=== PATIENT | female | born 1990 | race Caucasian/White ===

== ENCOUNTER 2022-10-18 01:45 | Emergency (ER) | payer OTHER, SELFPAY ==
--- NOTE | ~2022-10-18 | US_ITS ---
EXAMINATION: US VENOUS ULTRASOUND WITH DOPPLER LOWER EXTREMITY, RIGHT CLINICAL INFORMATION: Right leg pain COMPARISON: None available. TECHNIQUE: Ultrasound of the deep veins is performed from the hip to the calf with compression sonography and color and pulse Doppler assessment. Spectral analysis with color-flow imaging is performed. FINDINGS: There is normal venous compression and respiratory variation and augmented flow. The visualized common femoral vein, superficial femoral vein, profunda femoral vein, popliteal vein, and the trifurcation region shows no evidence of deep venous thrombosis. There is no significant popliteal fossa cyst. If the patient's symptoms persist, followup ultrasound in 5 days 7 days might be of value to exclude proximal propagation from a non-visualized calf vein. US/US venous duplex LE RT IMPRESSION: No DVT demonstrated in the right lower extremity.
[2022-10-18 01:47] VITALS: PULSE 86; TEMP 36.4; O2SAT 97; BMI 33.3
--- NOTE | 2022-10-18 04:00 | PC.NURSE ---
In order to obtain labwork, pt requested use of port rather than peripheral draw. Initial attempt by this RN successful with good flush, however no blood return. poultry dressing worker made multiple other attempts with similar results. Second PANTOMIMIST also with single attempt, same results. Per MD Allen, will positive flush results, port may be used for access to administer ordered fluids and medications. Pt agreed with plan of care.
[2022-10-18] MEDS: Heparin Sodium,Porcine Flush 50 UNITS/5 ML SYRINGE IVFLUSH (04:02)
[2022-10-18] MEDS: 0.9 % Sodium Chloride 500 ML 999 ML IV (04:02)
[2022-10-18] MEDS: Ketorolac Tromethamine 15 MG/ML VIAL IVPUSH (04:02)
--- NOTE | 2022-10-18 04:03 | ED_ITS ---
HPI - Extremity Injury (Lower) General Chief Complaint: Extremity Injury, Lower Stated Complaint: Leg Pain Time Seen by Provider: 10/18/22 02:08 History of Present Illness HPI Narrative: Patient is a 32-year-old female presents today with having right thigh pain. The pain has been ongoing for the last few days. There is no bowel urinary incontinence. There is no focal weakness. Patient has a history of rectal cancer. With metastasis to the sacrum. Patient denies any fever chills. Currently is on chemotherapy. She is from home. Patient denies any leg swelling. No history of blood clots in the past. Related Data Previous Rx's Medication Instructions Recorded cyclobenzaprine 10 mg tablet 10 mg PO TID PRN pain #14 tabs 10/18/22 ibuprofen 400 mg tablet 400 mg PO Q6H PRN pain #20 tabs 10/18/22 oxycodone 5 mg tablet 5 mg PO Q8H PRN pain #15 tabs 10/18/22 Allergies Allergy/AdvReac Type Severity Reaction Status Date / Time acetaminophen [From Percocet] AdvReac Vomiting Verified 10/18/22 01:53 oxycodone [From Percocet] AdvReac Vomiting Verified 10/18/22 01:53 Review of Systems Review of Systems: Positive rectal cancer Positive pain to the right thigh PMFSH Past Medical History Attestation statement: The following information was validated with the patient. Social History Social History Alcohol intake: current Alcohol intake frequency: a few times a week Smoked in Last 30 Days: No Use of substances other than those prescribed or required for medical reasons: No Advance Directives: No Advance Directives Information Provided: No Patient : No Physical Exam Vital Signs: Vital Signs: Last Vital Signs Temp 97.8 F 10/18/22 04:45 Pulse 75 10/18/22 04:45 Resp 18 10/18/22 04:45 BP 127/74 10/18/22 04:45 Pulse Ox 99 10/18/22 04:45 O2 Del Method Room Air 10/18/22 04:45 BMI result Body Mass Index 33.3 Appearance: Alert. Oriented X3. No acute distress. Eyes: Pupils equal, round and reactive to light. ENT: Pharynx normal. Neck: Normal inspection. Neck supple. No lymph nodes noted. No crepitus CVS: Normal heart rate and rhythm. Pulses normal. Normal S1 and S2 Respiratory: No respiratory distress. Breath sounds normal. No Wheezing. No rales Abdomen: Soft and nontender. No rigidity. No distention. good BS x4 Skin: Skin warm and dry. Normal skin color. Normal skin turgor. Extremities: No lower extremity edema. Neurovascular intact to all extremities. No Lacerations. No Rash. Bilateral lower extremity is approximately the same size. Sensation in the lower extremity intact there is no calf tenderness elicited on palpation distal pulses intact. Neuro: Oriented X 3. No motor deficit. No sensory deficit. Moving all extermities. No slurred speech Medications Administered Discontinued Medications Generic Name Dose Route Start Last Admin Trade Name Freq PRN Reason Stop Dose Admin Heparin Sodium (Porcine) 50 units 10/18/22 03:38 10/18/22 04:02 Heparin Sodium,Porcine Flush 50 Units/5 Ml Syringe IVFLUSH 10/18/22 03:39 50 units ONCE ONE Administration Hydromorphone HCl 0.5 mg 10/18/22 02:33 10/18/22 04:05 Hydromorphone Hcl 0.5 Mg/0.5 Ml Syringe IVPUSH 10/18/22 02:34 0.5 mg ONCE ONE Administration Protocol Sodium Chloride 500 mls @ 999 mls/hr 10/18/22 02:45 10/18/22 04:50 Ns IV 10/18/22 03:15 Infused .Q31M TITA Infusion Ketorolac Tromethamine 15 mg 10/18/22 02:33 10/18/22 04:02 Ketorolac Tromethamine 15 Mg/Ml Vial IVPUSH 10/18/22 02:34 15 mg ONCE ONE Administration Lorazepam 0.5 mg 10/18/22 02:33 10/18/22 04:04 Lorazepam 2 Mg/Ml Vial IVPUSH 10/18/22 02:34 0.5 mg ONCE ONE Administration Medical Decision Making Medical Decision Making MDM Narrative: Patient complaining of pain to the thigh area. With a history of rectal cancer. Will give pain medication. Doppler of the lower extremity showed no evidence of DVT. Labs are pending the check kidney function. Patient did not have any bowel urinary incontinence suggest patient has core equinus syndrome. No focal weakness. When pain is controlled will discharge patient home Patient's electrolytes unremarkable. Doppler of the lower extremity showed no evidence of DVT. Pain is now controlled. Will discharge patient home. Differential Diagnosis DVT, sciatica, musculoskeletal pain Lab Data MDM Lab Attestation statement: I reviewed the patient's lab results. 10/18/22 04:44 10/18/22 04:44 Labs: Lab Results 10/18/22 10/18/22 10/18/22 Range/Units 04:44 04:44 04:44 WBC 7.5 (4.8-10.8) X10*3/uL RBC 3.66 L (4.20-5.50) X10*6/uL Hgb 13.4 (12.0-16.0) g/dl Hct 38.7 (37.0-47.0) % MCV 105.7 H (80.0-98.0) fL MCH 36.6 H (27.0-33.0) pg MCHC 34.6 (31.0-35.0) g/dl RDW 12.4 (11.0-16.0) % Plt Count 194 (160-400) X10*3/uL MPV 10.3 (9.4-12.3) fL Absolute Nucleated RBC 0.000 (0.0-0.012) X10*3/uL Nucleated RBC % (auto) 0.0 (0.0-0.2) /100WBC Sodium 140 (135-145) mmol/L Potassium 3.8 (3.3-5.1) mmol/L Chloride 107 (96-108) mmol/L Carbon Dioxide 24 (22-29) mmol/L Anion Gap 13 (12-20) BUN 16 (9-16) mg/dL Creatinine 0.87 (0.5-1.4) mg/dL Estim Creat Clear Calc 113.3 Estimated GFR > 60 Random Glucose 97 (60-115) mg/dL Calcium 8.7 (8.4-10.2) mg/dL Total Bilirubin 0.4 (0.0-1.0) mg/dL AST 16 (5-31) U/L ALT 15 (0-31) U/L Alkaline Phosphatase 84 (39-117) U/L Total Protein 6.1 L (6.5-8.0) g/dL Albumin 3.7 (3.5-5.0) g/dL Beta HCG, Quant < 2 mIU/mL Urine Color Urine Appearance Urine pH (5.0-9.0) Ur Specific Randolph (1.005-1.025) Urine Protein (Neg-Trace) mg/dL Urine Glucose (UA) (Negative) mg/dL Urine Ketones (Negative) mg/dL Urine Blood (Negative) Urine Nitrite (Negative) Ur Leukocyte Esterase (Negative) Urine RBC (0-2) /HPF Urine WBC (0-5) /HPF Ur Squamous Epith Cells (0-2) /HPF Urine Bacteria (None Seen) Hyaline Casts (0-2) /LPF 10/18/22 Range/Units 04:51 WBC (4.8-10.8) X10*3/uL RBC (4.20-5.50) X10*6/uL Hgb (12.0-16.0) g/dl Hct (37.0-47.0) % MCV (80.0-98.0) fL MCH (27.0-33.0) pg MCHC (31.0-35.0) g/dl RDW (11.0-16.0) % Plt Count (160-400) X10*3/uL MPV (9.4-12.3) fL Absolute Nucleated RBC (0.0-0.012) X10*3/uL Nucleated RBC % (auto) (0.0-0.2) /100WBC Sodium (135-145) mmol/L Potassium (3.3-5.1) mmol/L Chloride (96-108) mmol/L Carbon Dioxide (22-29) mmol/L Anion Gap (12-20) BUN (9-16) mg/dL Creatinine (0.5-1.4) mg/dL Estim Creat Clear Calc Estimated GFR Random Glucose (60-115) mg/dL Calcium (8.4-10.2) mg/dL Total Bilirubin (0.0-1.0) mg/dL AST (5-31) U/L ALT (0-31) U/L Alkaline Phosphatase (39-117) U/L Total Protein (6.5-8.0) g/dL Albumin (3.5-5.0) g/dL Beta HCG, Quant mIU/mL Urine Color Yellow Urine Appearance Clear Urine pH 5.5 (5.0-9.0) Ur Specific Randolph 1.020 (1.005-1.025) Urine Protein Negative (Neg-Trace) mg/dL Urine Glucose (UA) Negative (Negative) mg/dL Urine Ketones Negative (Negative) mg/dL Urine Blood Trace H (Negative) Urine Nitrite Negative (Negative) Ur Leukocyte Esterase Negative (Negative) Urine RBC 3-5 H (0-2) /HPF Urine WBC 0-5 (0-5) /HPF Ur Squamous Epith Cells 3-5 (0-2) /HPF Urine Bacteria None Seen (None Seen) Hyaline Casts 0-2 (0-2) /LPF Prescription Management I considered prescription management with: Pain Medication Chronic Conditions Rectal CA Discharge Plan Discharge Clinical Impression: Sciatica Patient Disposition: Home, Self-Care Instructions: Sciatica (ED) Prescriptions: New cyclobenzaprine 10 mg tablet 10 mg PO TID PRN (Reason: pain) Qty: 14 0RF ibuprofen 400 mg tablet 400 mg PO Q6H PRN (Reason: pain) Qty: 20 0RF oxycodone 5 mg tablet 5 mg PO Q8H PRN (Reason: pain) Qty: 15 0RF Rx Instructions: Partial Fill upon patient request. Referrals: Physician,Unknown J [Primary Care Provider] - 10/23/22
[2022-10-18] MEDS: LORazepam 2 MG/ML VIAL 0.5 MG IVPUSH (04:04)
[2022-10-18] MEDS: HYDROmorphone HCl 0.5 MG/0.5 ML SYRINGE IVPUSH ×2 (04:05→05:55)
[2022-10-18 04:45] VITALS: BP 127/74; PULSE 75; RESP 18; TEMP 36.6; O2SAT 99
--- NOTE | 2022-10-18 04:47 | MHC.EDTECH ---
This tech assumed care of patient, Labs were drawn, Vitals taken, patient walked to bathroom obtained a urine specimen. Patient is resting at this time. Call hunter within reach
[2022-10-18 04:53] LABS: Hematocrit 38.7 % (37.0-47.0); Hemoglobin 13.4 g/dl (12.0-16.0); Mean Corpuscular HGB Conc 34.6 g/dl (31.0-35.0); Mean Corpuscular Hemoglobin 36.6 pg (27.0-33.0); Mean Corpuscular Volume 105.7 fL (80.0-98.0); Mean Platelet Volume 10.3 fL (9.4-12.3); Platelet Count 194 X10*3/uL (160-400); Red Blood Count 3.66 X10*6/uL (4.20-5.50); Red Cell Distribution Width 12.4 % (11.0-16.0); White Blood Count 7.5 X10*3/uL (4.8-10.8)
--- NOTE | 2022-10-18 04:55 | PC.NURSE ---
Pt ambulating to bathroom with steady gait, Endorsing reduction in pain per charting. WCTM
[2022-10-18 04:58] LABS: Appearance Urine Clear; Color Urine Yellow; Glucose Urine UA Negative (Negative); Leukocyte Esterase Urine Negative (Negative); Nitrite Urine Negative (Negative); PH 5.5 (5.0-9.0); UMIC TRIGGER UACC YES; Urine Blood Trace (Negative); Urine Ketones Negative (Negative); Urine Protein Negative (Neg-Trace)
[2022-10-18 05:00] LABS: Bacteria Urine None Seen (None Seen); Hyaline Casts Urine 0-2 /LPF (0-2); WBC Urine 0-5 /HPF (0-5)
[2022-10-18 05:10] LABS: Alanine Aminotransferase 15 U/L (0-31); Albumin Level 3.7 g/dL (3.5-5.0); Alkaline Phosphatase 84 U/L (39-117); Anion Gap 13 (12-20); Aspartate Amino Transferase 16 U/L (5-31); Bilirubin Total 0.4 mg/dL (0.0-1.0); Blood Urea Nitrogen 16 mg/dL (9-16); Calcium 8.7 mg/dL (8.4-10.2); Carbon Dioxide 24 mmol/L (22-29); Chloride 107 mmol/L (96-108); Creatinine Clr Calc Pharmacy 113.3; Estimated Glomerular Filt Rate > 60; Glucose Random 97 mg/dL (60-115); Potassium 3.8 mmol/L (3.3-5.1); Sodium 140 mmol/L (135-145); Total Protein 6.1 g/dL (6.5-8.0)
[2022-10-18 05:17] LABS: HCG Quantitative < 2 mIU/mL
[2022-10-18] MEDS: Heparin Sodium,Porcine Flush 50 UNITS, 0.9 % Sodium Chloride Flush 5 ML IVFLUSH (06:33)
== END 2022-10-18 06:37 | disposition home or self-care (01) ==
PROVIDERS: Emergency Provider Emergency Medicine Emergency Medical Services
DX: M54.31 Sciatica, right side (principal); M79.604 Pain in right leg; C20 Malignant neoplasm of rectum; C79.51 Secondary malignant neoplasm of bone; Z92.21 Personal history of antineoplastic chemotherapy
CPT/HCPCS: 36415; 80053; 81001; 84702; 85027; 93971; 96361; 96374; 96375; 96376; 99284; J1170; J1642; J1885; J2060

== ENCOUNTER → 2022-11-22 15:21 | Outpatient (BNVA) | payer OTHER, SELFPAY | DX: Z13.89 Encounter for screening for other disorder (principal) | CPT/HCPCS: 99203 ==

== ENCOUNTER 2023-01-18 04:00 | Emergency (ER) | payer OTHER, SELFPAY ==
--- NOTE | ~2023-01-18 | US_ITS ---
EXAMINATION: US VENOUS ULTRASOUND WITH DOPPLER LOWER EXTREMITY, RIGHT CLINICAL INFORMATION: Pain. History of cancer COMPARISON: None available. TECHNIQUE: Ultrasound of the deep veins is performed from the hip to the calf with compression sonography and color and pulse Doppler assessment. Spectral analysis with color-flow imaging is performed. FINDINGS: There is normal venous compression and respiratory variation and augmented flow. The visualized common femoral vein, superficial femoral vein, profunda femoral vein, popliteal vein, and the trifurcation region shows no evidence of deep venous thrombosis. There is no significant popliteal fossa cyst. If the patient's symptoms persist, followup ultrasound in 5 days 7 days might be of value to exclude proximal propagation from a non-visualized calf vein. US/US venous duplex LE RT IMPRESSION: No DVT demonstrated in the right lower extremity.
--- NOTE | 2023-01-18 06:43 | ED.EXTPRO ---
HPI - Extremity Problem General Chief complaint: Extremity Problem Stated complaint: right leg pain Time Seen by Provider: 01/18/23 06:38 Source: patient and old records reviewed Mode of arrival: ambulatory Limitations: no limitations History of Present Illness HPI Narrative: 32 y/o female with history of metastatic rectal cancer w/ sacral mass on lifelong oral chemotherapy who presents to the ER for evaluation of acute on chronic right lower extremity pain. She states she usually has a mild ache in her posterior thigh that she thinks is due to nerve compression from a tumor in her sacrum. It occasionally shoots up to the right thigh and buttock. It is usually relieved with ibuprofen. She states last night the pain was severe, stabbing pain not relieved by ibuprofen and a muscle relaxer. It radiated down into the calf. She was unable to sleep so she came to the ER for evaluation She recently had scans done at [facility] where she gets her cancer treatments. It showed the sacral mass slightly larger and brighter per patient report. MD Complaint: extremity pain Onset (ago): hour(s) Pain Consistency: constant Location: right Quality: stabbing Radiation: proximal Relieving factors: nothing Exacerbating factors: palpation Associated symptoms: denies other symptoms Context: other (hx metastatic cancer) Related Data Previous Rx's Medication Instructions Recorded cyclobenzaprine 10 mg tablet 10 mg PO TID PRN pain #14 tabs 10/18/22 ibuprofen 400 mg tablet 400 mg PO Q6H PRN pain #20 tabs 10/18/22 oxycodone 5 mg tablet 5 mg PO Q8H PRN pain #15 tabs 10/18/22 polymyxin B sulfate 10,000 1 drp ophthalmic (eye) QID 7 days 11/22/22 unit-trimethoprim 1 mg/mL eye #10 mL drops (Polytrim) cyclobenzaprine 10 mg tablet 10 mg PO TID PRN muscle spasm #10 01/18/23 tabs gabapentin 100 mg capsule 100 mg PO BID #30 caps 01/18/23 hydromorphone 2 mg tablet 2 mg PO Q6H PRN severe pain (scale 01/18/23 (Dilaudid) score 7-10) #7 tabs Allergies Allergy/AdvReac Type Severity Reaction Status Date / Time acetaminophen [From Percocet] AdvReac Vomiting Verified 10/18/22 01:53 oxycodone [From Percocet] AdvReac Vomiting Verified 10/18/22 01:53 Review of Systems Review of Systems: Yes all other systems are reviewed and are negative [facility] Social History Social History Alcohol intake: current Alcohol intake frequency: does not drink Smoked in Last 30 Days: No Substance Use Type: Marijuana Advance Directives: No Advance Directives Information Provided: Yes Physical Exam Vital Signs: Vital Signs: Last Vital Signs Temp 97.7 F 01/18/23 06:50 Pulse 77 01/18/23 06:48 Resp 12 01/18/23 06:50 BP 118/68 01/18/23 06:48 Pulse Ox 97 01/18/23 06:50 O2 Del Method Room Air 01/18/23 06:50 BMI result Body Mass Index 33.4 Appearance: Alert. Oriented X3. No acute distress. Head: normocephalic, atraumatic. Eyes: Pupils equal, round and reactive to light. ENT: Pharynx normal. No tonsillar swelling or exudate. Neck: Normal inspection. Neck supple. CVS: Normal heart rate and rhythm. Pulses normal. Respiratory: No respiratory distress. Breath sounds normal. Abdomen: Soft and nontender. +BS x4 Skin: Skin warm and dry. Normal skin color. Normal skin turgor. No rashes. Extremities: No lower extremity edema. No joint swelling. Right posterior thigh tenderness. no erythema or warmth. no calf tenderness. RLE held in flex position Neuro/psych: Oriented X 3. No motor deficit. No sensory deficit. CN II-XII intact. Normal speech and cognition. Medications Administered Discontinued Medications Generic Name Dose Route Start Last Admin Trade Name Freq PRN Reason Stop Dose Admin Hydromorphone HCl 2 mg 01/18/23 06:41 01/18/23 07:57 Hydromorphone Hcl 2 Mg Tablet PO 01/18/23 06:42 2 mg ONCE ONE Administration Medical Decision Making Medical Decision Making MDM Narrative: 32 yo female with history of metastatic rectal cancer w/ sacral mass presents to the ER for evaluation of RLE pain - acute on chronic, now stabbing and radiating both proximally and distally. Need to r/o DVT given cancer history. Patient's lower extremity Doppler was negative for DVT. Some mild relief with oral Dilaudid. Pain is most likely due to sacral mass, possibly compressing a nerve as it radiating down her leg. Patient would like to start gabapentin low dose and see if this improves her pain. She has an appointment with her oncologist in 1 week. Comfortable discharge home with low-dose gabapentin trial, pain control and outpatient follow-up. She agrees with plan. Stable for discharge home. Differential Diagnosis Differential Diagnoses: The differential diagnosis associated with the presentation includes Acute DVT, neuropathic pain, nerve compression, sciatica, lumbar radiculopathy, muscle strain Independent Interpretation I performed an independent interpretation of an: Ultrasound Interpretation: no acute DVT seen Radiology Impression Discussion of test interpretation with radiology: I have reviewed the radiologist's reading. Radiologist Impression: CLINICAL INFORMATION: Pain. History of cancer COMPARISON: None available. TECHNIQUE: Ultrasound of the deep veins is performed from the hip to the calf with compression sonography and color and pulse Doppler assessment. Spectral analysis with color-flow imaging is performed. FINDINGS: There is normal venous compression and respiratory variation and augmented flow. The visualized common femoral vein, superficial femoral vein, profunda femoral vein, popliteal vein, and the trifurcation region shows no evidence of deep venous thrombosis. There is no significant popliteal fossa cyst. If the patient's symptoms persist, followup ultrasound in 5 days 7 days might be of value to exclude proximal propagation from a non-visualized calf vein. US/US venous duplex LE RT IMPRESSION: No DVT demonstrated in the right lower extremity. External Record Review External record reviewed: Outpatient record, Prior outpatient labs and Prior outpatient radiology Prescription Management I considered prescription management with: Pain Medication Chronic Conditions Patient?s care impacted by: Other (Metastatic rectal cancer) Critical Care Time Critical Care Time Critical Care Time: No Discharge Plan Discharge Clinical Impression: Pain in right leg Patient Disposition: Home, Self-Care Instructions: Leg Pain (ED) Additional Instructions: Your ultrasound was negative for blood clot. Follow-up with your oncologist next week as scheduled. Take the prescribed medications as directed. Continue anti-inflammatories as needed for pain. Rest If you develop new or worsening symptoms call 911 or come back to the ER for further evaluation. Prescriptions: New gabapentin 100 mg capsule 100 mg PO BID Qty: 30 0RF hydromorphone [Dilaudid] 2 mg tablet 2 mg PO Q6H PRN (Reason: severe pain (scale score 7-10)) Qty: 7 0RF Rx Instructions: Partial Fill upon patient request. cyclobenzaprine 10 mg tablet 10 mg PO TID PRN (Reason: muscle spasm) Qty: 10 0RF No Action polymyxin B sulf-trimethoprim [Polytrim] 10,000 unit- 1 mg/mL drops 1 drp ophthalmic (eye) QID 7 Days Qty: 10 0RF Rx Instructions: while awake; do not exceed 6 doses in 24 hours cyclobenzaprine 10 mg tablet 10 mg PO TID PRN (Reason: pain) Qty: 14 0RF ibuprofen 400 mg tablet 400 mg PO Q6H PRN (Reason: pain) Qty: 20 0RF oxycodone 5 mg tablet 5 mg PO Q8H PRN (Reason: pain) Qty: 15 0RF Rx Instructions: Partial Fill upon patient request. Stand Alone Forms: Work/School Release
[2023-01-18 06:48] VITALS: BP 118/68; PULSE 77; RESP 16; O2SAT 99
[2023-01-18 06:50] VITALS: RESP 12; TEMP 36.5; O2SAT 97; BMI 33.4
--- NOTE | 2023-01-18 06:54 | PC.NURSE ---
Pt ca&ox4, ambulates with a steady gait. No signs of distress. Pt reports 8/10 right stabbing leg pain. Pt vitals stable. Plan of care ongoing.
[2023-01-18] MEDS: HYDROmorphone HCl 2 MG TABLET PO ×2 (07:57→09:50)
[2023-01-18 08:00] VITALS: RESP 16
== END 2023-01-18 09:56 | disposition home or self-care (01) ==
PROVIDERS: Emergency Provider Emergency Medicine
DX: M79.604 Pain in right leg (principal); R60.0 Localized edema
CPT/HCPCS: 93971; 99284

== ENCOUNTER 2023-04-03 21:57 | Emergency (ER) | payer OTHER, SELFPAY ==
--- NOTE | ~2023-04-03 | CT_ITS ---
EXAMINATION: CT HEAD WITHOUT CONTRAST CLINICAL INFORMATION: Dizziness COMPARISON: None available. TECHNIQUE: Contiguous axial imaging was performed from the skull base to vertex without intravenous administration of contrast. This CT examination was performed using dose optimization techniques as appropriate, variously including the following: *Automated exposure control *Adjustment of mA and/or kV according to patient size (this includes techniques or standardized protocols for targeted exams where dose is matched to indication/reason for exam; i.e. extremities or head) *Use of iterative reconstruction technique DLP: 644 mGy-cm FINDINGS: There is no evidence of acute intracranial hemorrhage or territorial infarction. No abnormal mass-effect or midline shift is seen. [place] to white matter differentiation is well preserved. No extra-axial fluid collections are identified. The ventricles are normal in size. Small hypoattenuating focus in the right basal ganglia is suggestive of a prominent perivascular space. The osseous structures and soft tissues are normal. The mastoid air cells and visualized portions of the paranasal sinuses are well-aerated. CT/CT head/brain wo IV con IMPRESSION: No acute intracranial pathology.
--- NOTE | 2023-04-03 22:09 | ECG_ITS ---
Test Reason : WEAKNESS Blood Pressure : / mmHG Vent. Rate : 096 BPM Atrial Rate : 096 BPM P-R Int : 136 ms QRS Dur : 076 ms QT Int : 364 ms P-R-T Axes : 033 067 040 degrees QTc Int : 459 ms Normal sinus rhythm Normal ECG No previous ECGs available Referred By: Generic ED Physician Electronically Signed By:IZA MCKINLEY MD
[2023-04-03 22:15] VITALS: BP 114/62; PULSE 90; RESP 18; TEMP 36.5; O2SAT 100; BMI 32.4
[2023-04-03 22:33] LABS: Appearance Urine Clear; Color Urine Yellow; Glucose Urine UA Negative (Negative); Leukocyte Esterase Urine Negative (Negative); Nitrite Urine Negative (Negative); Specific Gravity - Urine 1.025 (1.005-1.025); UPreg QC Valid YES; Urine Blood Negative (Negative); Urine Ketones Negative (Negative); Urine Pregnancy NEGATIVE (NEGATIVE); Urine Protein Negative (Neg-Trace)
[2023-04-03 22:45] VITALS: BP 114/59; PULSE 98
[2023-04-03 22:46] VITALS: BP 110/71; BP 115/71; PULSE 100; PULSE 96
--- NOTE | 2023-04-03 23:20 | ED.GENADULT ---
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 Right now she tells me she is no longer having issues with depth perception however she just feels overall unwell. She denies chest pain, shortness of breath, nausea, vomiting, abdominal pain, visual disturbances, weakness, changes in speech. Patient does report that prior to this episode her smart watch told her that she was tachycardic in the 120s. NIH stroke scale 0 Related Data Previous Rx's Medication Instructions Recorded cyclobenzaprine 10 mg tablet 10 mg PO TID PRN pain #14 tabs 10/18/22 ibuprofen 400 mg tablet 400 mg PO Q6H PRN pain #20 tabs 10/18/22 oxycodone 5 mg tablet 5 mg PO Q8H PRN pain #15 tabs 10/18/22 polymyxin B sulfate 10,000 1 drp ophthalmic (eye) QID 7 days 11/22/22 unit-trimethoprim 1 mg/mL eye #10 mL drops (Polytrim) cyclobenzaprine 10 mg tablet 10 mg PO TID PRN muscle spasm #10 01/18/23 tabs gabapentin 100 mg capsule 100 mg PO BID #30 caps 01/18/23 hydromorphone 2 mg tablet 2 mg PO Q6H PRN severe pain (scale 01/18/23 (Dilaudid) score 7-10) #7 tabs Allergies Allergy/AdvReac Type Severity Reaction Status Date / Time acetaminophen [From Percocet] AdvReac Vomiting Verified 10/18/22 01:53 oxycodone [From Percocet] AdvReac Vomiting Verified 10/18/22 01:53 Review of Systems Review of Systems: Constitutional : No Weight loss, No Fever, No Chills, No Fatigue, No Malaise ENT/Mouth : No sore throat, No Rhinorrhea Eyes: No Eye Pain, No Swelling, No Redness Cardiovascular : No Chest Pain, No SOB, No Dyspnea on Exertion, No Orthopnea, No Edema, No Palpitations Respiratory : No Cough, No Sputum, No Wheezing Gastrointestinal : No Nausea, No Vomiting, No Diarrhea, No Constipation, No abdominal Pain, No Hematochezia, No Melena Genitourinary : No Dysuria, No Urinary Frequency, No Hematuria, Musculoskeletal : No joint pain, No Myalgias, No Joint Swelling Skin : No Skin Lesions, No rash Neuro : No Weakness, No Numbness, + Dizziness, No Headache Psych : No Anxiety/Panic, No Depression All other systems reviewed and are negative Yes all other systems are reviewed and are negative [facility] Past Medical History Attestation statement: The following information was validated with the patient. Source: old records reviewed and nursing notes reviewed Social History Alcohol intake: current Alcohol intake frequency: does not drink Smoked in Last 30 Days: No Use of substances other than those prescribed or required for medical reasons: No Substance Use Type: Marijuana Advance Directives: No Advance Directives Information Provided: No Patient : No Physical Exam ED Vital Signs: Vital Signs - 24 hr 04/03/23 22:15 04/03/23 22:45 04/03/23 22:46 Temperature 97.7 F Pulse Rate 90 98 96 Respiratory Rate 18 Blood Pressure 114/62 114/59 L 115/71 Pulse Oximetry 100 Oxygen Delivery Method Room Air 04/03/23 22:46 04/04/23 02:56 Temperature 97.9 F Pulse Rate 100 78 Respiratory Rate Blood Pressure 110/71 119/58 L Pulse Oximetry 98 Oxygen Delivery Method Room Air BMI result Body Mass Index 32.4 vss Appearance: Alert.? Oriented X3.? No acute distress.? Head: Normocephalic, atraumatic, no step-offs or deformities Eyes: Pupils equal, round and reactive to light. EOMI and pain free. ? Neck: Normal inspection.? Neck supple.? CVS: Normal heart rate and rhythm.? Pulses normal.? Respiratory: No respiratory distress.? Breath sounds normal.? Abdomen: Soft and nontender.? Skin: Skin warm and dry.? Normal skin color.? Normal skin turgor.? Extremities: No lower extremity edema.? No calf ttp. 5/5 strength to bilateral upper and lower extremities Neuro: Oriented X 3.? No motor deficit.? No sensory deficit. CN 2-12 intact . Normal [id number], avzk-ox-leia, steady tandem gait normal coordination. Negative Romberg and pronator drift. Course Reevaluation(s) Reevaluation #1: CBC appears to be around patient's baseline with low red blood cell count, MCV of 103.7 this appears to be around patient's baseline. Chemistry unremarkable. Troponin negative, EKG nonischemic. D-dimer negative. UA without infection. Urine negative. Orthostatics vital signs negative. CT head pending Time: 01:05 Reevaluation #2: Patient feeling well. CT of the head pending. Sign out to Dr. Allen pending dispo and imaging Time: 01:43 Medical Decision Making Medical Decision Making [facility] Narrative: 2330 32 yo f presents w/ issues w/ depth perception, lightheadedness and overall feeling unwell X 1 hour PE benign. NIHSS-0 Concerns for orthostatic hypotension vs electrolyte abnormalities versus dehydration. Less likely stroke, posterior stroke, TIA. Unlikely ACS, PE. Plan- labs, ekg, orthostatics, ua Patient's CT scan of the head was grossly negative. There is no evidence of bleeding. Urine showed no signs of infection. Hemoglobin is 13 no evidence for anemia. D-dimer is less than 150 history not consistent with PE unlikely to have a pulmonary emboli. Patient to be discharged home. Currently in stable condition Differential Diagnosis Differential Diagnoses: The differential diagnosis associated with the presentation includes Concerns for orthostatic hypotension vs electrolyte abnormalities versus dehydration. Less likely stroke, posterior stroke, TIA. Unlikely ACS, PE. Admission/Observation Consideration of admission/observation: Escalation of care including admission/observation considered possible Lab Data [facility] Lab Attestation statement: I reviewed the patient's lab results. 04/04/23 00:34 04/04/23 00:34 Labs: Lab Results 04/03/23 04/04/23 Range/Units 22:24 00:34 WBC 5.5 (4.8-10.8) X10*3/uL RBC 3.56 L (4.20-5.50) X10*6/uL Hgb 13.0 (12.0-16.0) g/dl Hct 36.9 L (37.0-47.0) % MCV 103.7 H (80.0-98.0) fL MCH 36.5 H (27.0-33.0) pg MCHC 35.2 H (31.0-35.0) g/dl RDW 12.7 (11.0-16.0) % Plt Count 178 (160-400) X10*3/uL MPV 10.4 (9.4-12.3) fL Immature Gran % (Auto) 0.0 (0.0-0.4) % Neut % (Auto) 52.2 (45-73) % Lymph % (Auto) 34.1 (20-40) % [place] % (Auto) 9.0 (2-11) % Eos % (Auto) 4.3 H (0-4) % Baso % (Auto) 0.4 (0-2) % Lymph # (Auto) 1.9 (1.2-4.9) X10*3/uL [place] # (Auto) 0.5 (0.1-1.2) X10*3/uL Eos # (Auto) 0.2 (0.0-0.4) X10*3/uL Baso # (Auto) 0.0 (0.0-0.2) X10*3/uL Abs Immat Gran (auto) 0.00 (0.00-0.03) X10*3/uL Absolute Neuts (auto) 2.9 (2.0-8.3) x10*3/uL Absolute Nucleated RBC 0.000 (0.0-0.012) X10*3/uL Nucleated RBC % (auto) 0.0 (0.0-0.2) /100WBC D-Dimer High Sensitivty < 150 NG/ML Sodium 139 (135-145) mmol/L Potassium 3.9 (3.3-5.1) mmol/L Chloride 105 (96-108) mmol/L Carbon Dioxide 26 (22-29) mmol/L Anion Gap 12 (12-20) BUN 15 (9-16) mg/dL Creatinine 0.86 (0.5-1.4) mg/dL Estim Creat Clear Calc 113.1 Estimated GFR > 60 Random Glucose 102 (60-115) mg/dL Calcium 8.9 (8.4-10.2) mg/dL Magnesium 2.2 (1.6-2.6) mg/dL Total Bilirubin 0.3 (0.0-1.0) mg/dL AST 16 (5-31) U/L ALT 12 (0-31) U/L Alkaline Phosphatase 83 (39-117) U/L Troponin I High Sens < 2.7 (<3.5-17.0) ng/L Total Protein 6.7 (6.5-8.0) g/dL Albumin 3.8 (3.5-5.0) g/dL Lipase 20 (8-78) U/L Urine Color Yellow Urine Appearance Clear Urine pH 6.0 (5.0-9.0) Ur Specific [place] 1.025 (1.005-1.025) Urine Protein Negative (Neg-Trace) mg/dL Urine Glucose (UA) Negative (Negative) mg/dL Urine Ketones Negative (Negative) mg/dL Urine Blood Negative (Negative) Urine Nitrite Negative (Negative) Ur Leukocyte Esterase Negative (Negative) Urine Test NEGATIVE (NEGATIVE) Independent Interpretation I performed an independent interpretation of an: EKG (Ventricular rate of 96, VT normal, QRS normal, QT/QTC normal. No ST elevations or inversions concerning for acute ischemia) and CT Scan Radiology Impression Discussion of test interpretation with radiology: I have reviewed the radiologist's reading. Tests considered The following testing was considered but not selected: NIHSS 0 no indication for cta or ct of head at this time or MRI Critical Care Time Critical Care Time Critical Care Time: No Discharge Plan Discharge Clinical Impression: Light headed, Near syncope Patient Disposition: Home, Self-Care Instructions: Near Syncope (ED), Lightheadedness (ED) Additional Instructions: Take your medications as prescribed. If you were prescribed antibiotics today, it is important that you take your medication to their entirety, do not skip any doses, do not finish them early. Follow-up with your primary care provider this week. Return to the emergency department with new or worsening symptoms. Such as fevers, chills, chest pain, shortness of breath, nausea, vomiting, dizziness, headache, vision changes, lethargy In case of emergency call 911 Prescriptions: No Action polymyxin B sulf-trimethoprim [Polytrim] 10,000 unit- 1 mg/mL drops 1 drp ophthalmic (eye) QID 7 Days Qty: 10 0RF Rx Instructions: while awake; do not exceed 6 doses in 24 hours cyclobenzaprine 10 mg tablet 10 mg PO TID PRN (Reason: pain) Qty: 14 0RF ibuprofen 400 mg tablet 400 mg PO Q6H PRN (Reason: pain) Qty: 20 0RF oxycodone 5 mg tablet 5 mg PO Q8H PRN (Reason: pain) Qty: 15 0RF Rx Instructions: Partial Fill upon patient request. gabapentin 100 mg capsule 100 mg PO BID Qty: 30 0RF hydromorphone [Dilaudid] 2 mg tablet 2 mg PO Q6H PRN (Reason: severe pain (scale score 7-10)) Qty: 7 0RF Rx Instructions: Partial Fill upon patient request. cyclobenzaprine 10 mg tablet 10 mg PO TID PRN (Reason: muscle spasm) Qty: 10 0RF Referrals: Yasmeen Rivera NP [Primary Care Provider] - 2 days Stand Alone Forms: Work/School Release
[2023-04-04 00:39] LABS: Basophils Percent Auto 0.4 % (0-2); Eosinophils Absolute Auto 0.2 X10*3/uL (0.0-0.4); Eosinophils Percent Auto 4.3 % (0-4); Hematocrit 36.9 % (37.0-47.0); Lymphocytes Absolute Auto 1.9 X10*3/uL (1.2-4.9); Lymphocytes Percent Auto 34.1 % (20-40); MANUAL DIFF FLAG NO; Mean Corpuscular HGB Conc 35.2 g/dl (31.0-35.0); Mean Corpuscular Hemoglobin 36.5 pg (27.0-33.0); Mean Corpuscular Volume 103.7 fL (80.0-98.0); Mean Platelet Volume 10.4 fL (9.4-12.3); Monocytes Absolute Auto 0.5 X10*3/uL (0.1-1.2); Neutrophils Absolute Auto 2.9 x10*3/uL (2.0-8.3); Neutrophils Percent Auto 52.2 % (45-73); Platelet Count 178 X10*3/uL (160-400); Red Blood Count 3.56 X10*6/uL (4.20-5.50); Red Cell Distribution Width 12.7 % (11.0-16.0); White Blood Count 5.5 X10*3/uL (4.8-10.8)
[2023-04-04 00:53] LABS: Alanine Aminotransferase 12 U/L (0-31); Albumin Level 3.8 g/dL (3.5-5.0); Alkaline Phosphatase 83 U/L (39-117); Anion Gap 12 (12-20); Aspartate Amino Transferase 16 U/L (5-31); Bilirubin Total 0.3 mg/dL (0.0-1.0); Blood Urea Nitrogen 15 mg/dL (9-16); Calcium 8.9 mg/dL (8.4-10.2); Carbon Dioxide 26 mmol/L (22-29); Chloride 105 mmol/L (96-108); Creatinine Clr Calc Pharmacy 113.1; D Dimer High Sensitivity < 150 NG/ML; Estimated Glomerular Filt Rate > 60; Glucose Random 102 mg/dL (60-115); Lipase 20 U/L (8-78); Magnesium 2.2 mg/dL (1.6-2.6); Potassium 3.9 mmol/L (3.3-5.1); Sodium 139 mmol/L (135-145); Total Protein 6.7 g/dL (6.5-8.0)
[2023-04-04 01:00] LABS: Troponin-I High Sensitivity < 2.7 ng/L (<3.5-17.0)
[2023-04-04 02:56] VITALS: BP 119/58; PULSE 78; TEMP 36.6; O2SAT 98
--- NOTE | 2023-04-04 03:08 | PC.NURSE ---
pt assessed, c/o nausea, iv fluids administered, tolerated well
== END 2023-04-04 04:03 | disposition home or self-care (01) ==
PROVIDERS: Physician Assistant; Emergency Provider Internal Medicine; PCP Nurse Practitioner Family
DX: R55 Syncope and collapse (principal); R42 Dizziness and giddiness; Z79.899 Other long term (current) drug therapy
CPT/HCPCS: 36415; 70450; 80053; 81003; 81025; 83690; 83735; 84484; 85025; 85379; 93005; 99284; 99285

== ENCOUNTER 2023-10-06 18:36 | Emergency (ER) | payer OTHER, SELFPAY ==
--- NOTE | ~2023-10-06 | CT_ITS ---
EXAMINATION: CT ABDOMEN AND PELVIS WITHOUT CONTRAST CLINICAL INFORMATION: Right sacral pain, history of metastatic rectal cancer COMPARISON: None available. TECHNIQUE: Multidetector volumetric imaging was performed from the superior aspect of the liver through the pubic symphysis. Sagittal and coronal reformatted images were obtained on the technologist's workstation. This CT examination was performed using dose optimization techniques as appropriate, variously including the following: *Automated exposure control *Adjustment of mA and/or kV according to patient size (this includes techniques or standardized protocols for targeted exams where dose is matched to indication/reason for exam; i.e. extremities or head) *Use of iterative reconstruction technique DLP: 703 mGy-cm FINDINGS: Of note, there is limited evaluation for metastatic disease in the absence of intravenous contrast. LUNG BASES: The visualized lung bases are unremarkable. LIVER, GALLBLADDER, AND BILIARY TREE: The liver is normal in size, shape, and attenuation. No focal hepatic lesion or biliary ductal dilatation is identified on this noncontrast exam. Patient is status post cholecystectomy. PANCREAS: Unremarkable. SPLEEN: Unremarkable. ADRENAL GLANDS: Unremarkable. KIDNEYS AND URETERS: No hydronephrosis or obstructing calculus bilaterally. Duplicated left renal collecting system is noted. Mid left renal cyst measures approximately 1.8 cm; no follow-up recommended. BLADDER: Unremarkable. GASTROINTESTINAL TRACT/ABDOMINAL WALL: No evidence of bowel obstruction. Suture line is present in the rectum. No significant bowel wall thickening is seen. There is a ventral hernia in the right anterior abdominal wall containing a short segment of colon. The appendix is unremarkable. No free fluid or free air is seen. LYMPH NODES: No lymphadenopathy is seen, though assessment is limited in the absence of intravenous contrast. VASCULAR: Unremarkable. PELVIC VISCERA: IUD is present in the uterus. OSSEOUS STRUCTURES: There is heterogeneous lytic erosion in the right anterior aspect of the sacrum at the level of S5, such as on image [id number], suspicious for malignancy/metastatic disease given the patient's history of rectal cancer. Anterior to this there is prominent asymmetric soft tissue thickening in the right presacral region, also likely malignant/metastatic in nature. CT/CT abdomen pelvis wo IV con IMPRESSION: 1. Heterogeneous lytic erosion in the right anterior aspect of the sacrum at the level of S5, suspicious for malignancy/metastatic disease given the patient's history of rectal cancer. Anterior to this there is prominent asymmetric soft tissue thickening in the right presacral region, also concerning for malignant/metastatic etiology. Of note, no prior studies are available for comparison. 2. Right anterior abdominal wall hernia containing a short segment of colon. No evidence of bowel obstruction.
[2023-10-06 18:54] VITALS: BP 147/103; PULSE 102; RESP 16; TEMP 36.4; O2SAT 98; BMI 30.3
--- NOTE | 2023-10-06 19:18 | ED.BACK ---
HPI - Back Pain/Injury General Chief Complaint: Back Pain/Injury Stated Complaint: right lower back pain Time Seen by Provider: 10/06/23 19:16 Source: patient Mode of arrival: ambulatory Limitations: no limitations History of Present Illness HPI Narrative: Patient's history of rectal cancer with metastatic to right sacral bone on oral chemotherapy been having increased pain in the right sacral area for last few days got worse today in a.m. took ibuprofen at home without much response pain shoots to the right lower leg similar pain in the past no abdominal pain no recent trauma no bladder or bowel involvement patient just had right hip revision surgery on 06/27 Related Data Previous Rx's ?Medication ?Instructions ?Recorded cyclobenzaprine 10 mg tablet 10 mg PO TID PRN pain #14 tabs 10/18/22 ibuprofen 400 mg tablet 400 mg PO Q6H PRN pain #20 tabs 10/18/22 oxycodone 5 mg tablet 5 mg PO Q8H PRN pain #15 tabs 10/18/22 polymyxin B sulfate 10,000 1 drp ophthalmic (eye) QID 7 days 11/22/22 unit-trimethoprim 1 mg/mL eye #10 mL drops (Polytrim) cyclobenzaprine 10 mg tablet 10 mg PO TID PRN muscle spasm #10 01/18/23 tabs gabapentin 100 mg capsule 100 mg PO BID #30 caps 01/18/23 hydromorphone 2 mg tablet 2 mg PO Q6H PRN severe pain (scale 01/18/23 (Dilaudid) score 7-10) #7 tabs morphine 15 mg immediate release 15 mg PO Q8H PRN pain #15 tabs 10/07/23 tablet ondansetron 4 mg disintegrating 4 mg PO Q6-8H PRN nausea and 10/07/23 tablet vomiting #10 tabs Allergies Allergy/AdvReac Type Severity Reaction Status Date / Time acetaminophen [From Percocet] AdvReac Vomiting Verified 10/06/23 18:56 oxycodone [From Percocet] AdvReac Vomiting Verified 10/06/23 18:56 Review of Systems Review of Systems: Yes all other systems are reviewed and are negative PMFSH Social History Social History Alcohol intake: current Alcohol intake frequency: does not drink Substance Use Type: Marijuana Advance Directives: No Advance Directives Information Provided: No Physical Exam Vital Signs: Vital Signs: Last Vital Signs Temp 98.3 F 10/06/23 22:49 Pulse 72 10/06/23 22:49 Resp 16 10/06/23 22:49 BP 117/64 10/06/23 22:49 Pulse Ox 94 10/06/23 22:49 O2 Del Method Room Air 10/06/23 22:49 BMI result Body Mass Index 30.3 Appearance: Alert. Oriented X3. No acute distress. Eyes: No pallor or icterus ENT: Pharynx normal. Oral Mucosa moist Neck: Normal inspection. Neck supple. CVS: Normal heart rate and rhythm. Pulses normal. Respiratory: No respiratory distress. Equal air entry bilateral, no wheezing/rales/rhonchi Abdomen: Soft and nontender. Bowel sounds are present, no mass palpable, no CVA tenderness Skin: Skin warm and dry. Normal skin color. Normal skin turgor. back: No midline tenderness, tenderness in the right sacral area SLR positive at 60 degrees no paresthesia no motor weakness Extremities: No lower extremity edema. No calf tenderness Neuro: Oriented X 3. No motor deficit. No sensory deficit.No cerebellar signs , cranial nerves II-XII intact Medications Administered Discontinued Medications Generic Name Dose Route Start Last Admin Trade Name Freq PRN Reason Stop Dose Admin Hydromorphone HCl 2 mg 10/06/23 19:28 10/06/23 19:54 Hydromorphone Hcl 2 Mg/Ml Vial IVPUSH 10/06/23 19:29 2 mg ONCE ONE Administration Protocol Hydromorphone HCl 1 mg 10/06/23 22:24 10/06/23 22:27 Hydromorphone Hcl 1 Mg/Ml Syringe IVPUSH 10/06/23 22:25 1 mg ONCE ONE Administration Protocol Ondansetron HCl 4 mg 10/06/23 19:28 10/06/23 19:54 Ondansetron Hcl 4 Mg/2 Ml Vial IVPUSH 10/06/23 19:29 4 mg ONCE ONE Administration Prochlorperazine Edisylate 10 mg 10/06/23 22:07 10/06/23 22:23 Prochlorperazine Edisylate 10 Mg/2 Ml Vial IVPUSH 10/06/23 22:08 10 mg ONCE ONE Administration Medical Decision Making Medical Decision Making [facility] Narrative: Patient's rectal cancer with metastasis to sacral bone no previous imaging available but CT scan showed similar location metastatic area according to patient she had similar lesion in the past. Patient will be following oncologist for further management for now will give the patient morphine tablets for severe pain patient ambulatory at this time without any significant discomfort Differential Diagnosis Differential Diagnoses: The differential diagnosis associated with the presentation includes Lab Data [facility] Lab Attestation statement: I reviewed the patient's lab results. 10/06/23 19:53 10/06/23 19:53 Labs: Lab Results 10/06/23 Range/Units 19:53 WBC 6.0 (4.8-10.8) X10*3/uL RBC 3.74 L (4.20-5.50) X10*6/uL Hgb 12.8 (12.0-16.0) g/dl Hct 36.8 L (37.0-47.0) % MCV 98.4 H (80.0-98.0) fL MCH 34.2 H (27.0-33.0) pg MCHC 34.8 (31.0-35.0) g/dl RDW 11.4 (11.0-16.0) % Plt Count 251 D (160-400) X10*3/uL MPV 10.5 (9.4-12.3) fL Immature Gran % (Auto) 0.3 (0.0-0.4) % Neut % (Auto) 54.0 (45-73) % Lymph % (Auto) 31.8 (20-40) % [place] % (Auto) 9.6 (2-11) % Eos % (Auto) 4.0 (0-4) % Baso % (Auto) 0.3 (0-2) % Lymph # (Auto) 1.9 (1.2-4.9) X10*3/uL [place] # (Auto) 0.6 (0.1-1.2) X10*3/uL Eos # (Auto) 0.2 (0.0-0.4) X10*3/uL Baso # (Auto) 0.0 (0.0-0.2) X10*3/uL Abs Immat Gran (auto) 0.02 (0.00-0.03) X10*3/uL Absolute Neuts (auto) 3.2 (2.0-8.3) x10*3/uL Absolute Nucleated RBC 0.000 (0.0-0.012) X10*3/uL Nucleated RBC % (auto) 0.0 (0.0-0.2) /100WBC Sodium 143 (135-145) mmol/L Potassium 3.8 (3.3-5.1) mmol/L Chloride 104 (96-108) mmol/L Carbon Dioxide 29 (22-29) mmol/L Anion Gap 14 (12-20) BUN 19 H (9-16) mg/dL Creatinine 0.76 (0.5-1.4) mg/dL Estim Creat Clear Calc 122.7 Estimated GFR > 60 Random Glucose 94 (60-115) mg/dL Calcium 9.5 D (8.4-10.2) mg/dL Total Bilirubin 0.2 (0.0-1.0) mg/dL AST 18 (5-31) U/L ALT 17 (0-31) U/L Alkaline Phosphatase 64 (39-117) U/L Total Protein 7.1 (6.5-8.0) g/dL Albumin 4.2 (3.5-5.0) g/dL Independent Interpretation I performed an independent interpretation of an: CT Scan Radiology Impression Discussion of test interpretation with radiology: I have reviewed the radiologist's reading. Discharge Plan Discharge Clinical Impression: Rectal cancer metastatic to bone Patient Disposition: Home, Self-Care Instructions: Colorectal Cancer (DC), Bone Metastasis (ED) Additional Instructions: Follow with your oncologist for further management Take morphine tablets for severe pain Prescriptions: New morphine 15 mg tablet 15 mg PO Q8H PRN (Reason: pain) Qty: 15 0RF Rx Instructions: Partial Fill upon patient request. ondansetron 4 mg tablet,disintegrating 4 mg PO Q6-8H PRN (Reason: nausea and vomiting) Qty: 10 0RF No Action polymyxin B sulf-trimethoprim [Polytrim] 10,000 unit- 1 mg/mL drops 1 drp ophthalmic (eye) QID 7 Days Qty: 10 0RF Rx Instructions: while awake; do not exceed 6 doses in 24 hours cyclobenzaprine 10 mg tablet 10 mg PO TID PRN (Reason: pain) Qty: 14 0RF ibuprofen 400 mg tablet 400 mg PO Q6H PRN (Reason: pain) Qty: 20 0RF oxycodone 5 mg tablet 5 mg PO Q8H PRN (Reason: pain) Qty: 15 0RF Rx Instructions: Partial Fill upon patient request. gabapentin 100 mg capsule 100 mg PO BID Qty: 30 0RF hydromorphone [Dilaudid] 2 mg tablet 2 mg PO Q6H PRN (Reason: severe pain (scale score 7-10)) Qty: 7 0RF Rx Instructions: Partial Fill upon patient request. cyclobenzaprine 10 mg tablet 10 mg PO TID PRN (Reason: muscle spasm) Qty: 10 0RF Print Language: Hungarian
--- NOTE | 2023-10-06 19:20 | PC.NURSE ---
pt from home, a&ox4, respirations even and unlabored. pt reports increasing lower back pain x1 day, reports taking tylenol and ibuprofen without relief. pt reports taking tramadol with minimal relief. pt reports intermittent nausea, denies vomiting and diarrhea.
[2023-10-06 19:54] VITALS: RESP 18
[2023-10-06] MEDS: HYDROmorphone HCl 2 MG/ML VIAL IVPUSH (19:54)
[2023-10-06] MEDS: ondansetron HCL 4 MG/2 ML VIAL IVPUSH (19:54)
[2023-10-06 19:58] LABS: MANUAL DIFF FLAG NO
--- NOTE | 2023-10-06 20:00 | PC.NURSE ---
pt port accessed at this time, labs obtained and sent. pt medicated per jul for nausea and 5/10 lower back pain.
[2023-10-06 20:14] LABS: Alanine Aminotransferase 17 U/L (0-31); Albumin Level 4.2 g/dL (3.5-5.0); Alkaline Phosphatase 64 U/L (39-117); Anion Gap 14 (12-20); Aspartate Amino Transferase 18 U/L (5-31); Basophils Percent Auto 0.3 % (0-2); Bilirubin Total 0.2 mg/dL (0.0-1.0); Blood Urea Nitrogen 19 mg/dL (9-16); Calcium 9.5 mg/dL (8.4-10.2); Carbon Dioxide 29 mmol/L (22-29); Chloride 104 mmol/L (96-108); Creatinine Clr Calc Pharmacy 122.7; Eosinophils Absolute Auto 0.2 X10*3/uL (0.0-0.4); Estimated Glomerular Filt Rate > 60; Glucose Random 94 mg/dL (60-115); Hematocrit 36.8 % (37.0-47.0); Hemoglobin 12.8 g/dl (12.0-16.0); Imm Gran Abs Auto 0.02 X10*3/uL (0.00-0.03); Imm Gran Pct Auto 0.3 % (0.0-0.4); Lymphocytes Absolute Auto 1.9 X10*3/uL (1.2-4.9); Lymphocytes Percent Auto 31.8 % (20-40); Mean Corpuscular HGB Conc 34.8 g/dl (31.0-35.0); Mean Corpuscular Hemoglobin 34.2 pg (27.0-33.0); Mean Corpuscular Volume 98.4 fL (80.0-98.0); Mean Platelet Volume 10.5 fL (9.4-12.3); Monocytes Absolute Auto 0.6 X10*3/uL (0.1-1.2); Monocytes Percent Auto 9.6 % (2-11); Neutrophils Absolute Auto 3.2 x10*3/uL (2.0-8.3); Platelet Count 251 X10*3/uL (160-400); Potassium 3.8 mmol/L (3.3-5.1); Red Blood Count 3.74 X10*6/uL (4.20-5.50); Red Cell Distribution Width 11.4 % (11.0-16.0); Sodium 143 mmol/L (135-145); Total Protein 7.1 g/dL (6.5-8.0)
[2023-10-06] MEDS: Prochlorperazine Edisylate 10 MG/2 ML VIAL IVPUSH (22:23)
[2023-10-06 22:27] VITALS: RESP 16
[2023-10-06] MEDS: HYDROmorphone HCl 1 MG/ML SYRINGE IVPUSH (22:27)
--- NOTE | 2023-10-06 22:27 | PC.NURSE ---
pt medicated per jul for 4/10 lower back pain. pt given medication for nausea.
[2023-10-06 22:49] VITALS: BP 117/64; PULSE 72; RESP 16; TEMP 36.8; O2SAT 94
[2023-10-07 00:34] VITALS: BP 117/64; PULSE 72; RESP 16; TEMP 36.8; O2SAT 94
--- NOTE | 2023-10-07 00:34 | PC.NURSE ---
pt port de-accessed at this time, pt tolerated well.
== END 2023-10-07 00:34 | disposition home or self-care (01) ==
PROVIDERS: Emergency Provider Internal Medicine; PCP Nurse Practitioner Family
DX: M54.50 Low back pain, unspecified (principal); C20 Malignant neoplasm of rectum; C79.51 Secondary malignant neoplasm of bone
CPT/HCPCS: 36415; 74176; 80053; 85025; 96374; 96375; 96376; 99284; J0737; J1170; J2405

== ENCOUNTER 2023-11-04 18:05 | Emergency (ER) | payer OTHER, SELFPAY ==
--- NOTE | ~2023-11-04 | US_ITS ---
EXAMINATION: US VENOUS ULTRASOUND WITH DOPPLER LOWER EXTREMITY, RIGHT CLINICAL INFORMATION: Pain and swelling COMPARISON: 01/18/2023 TECHNIQUE: Ultrasound of the deep veins is performed from the hip to the calf with compression sonography and color and pulse Doppler assessment. Spectral analysis with color-flow imaging is performed. FINDINGS: There is normal venous compression and respiratory variation and augmented flow. The visualized common femoral vein, superficial femoral vein, profunda femoral vein, popliteal vein, and the trifurcation region shows no evidence of deep venous thrombosis. There is no significant popliteal fossa cyst. If the patient's symptoms persist, followup ultrasound in 5 days 7 days might be of value to exclude proximal propagation from a non-visualized calf vein. US/US venous duplex LE RT IMPRESSION: No DVT demonstrated in the right lower extremity.
--- NOTE | ~2023-11-04 | XR_ITS ---
EXAMINATION: XR HIP, RIGHT CLINICAL INFORMATION: Pain COMPARISON: None available. TECHNIQUE: Two views of the right hip. PA view of the pelvis. FINDINGS: No fracture. Alignment is anatomic. Hip joint space is maintained. Soft tissues are unremarkable. IUD and surgical suture line in the pelvis. XR/XR hip RT w PEL1V IMPRESSION: Normal right hip.
[2023-11-04 18:08] VITALS: BP 151/103; PULSE 110; RESP 18; TEMP 36.5; O2SAT 97; BMI 31.0
[2023-11-04] MEDS: Ketorolac Tromethamine 30 MG/ML VIAL IM (19:15)
--- NOTE | 2023-11-04 20:03 | ED_ITS ---
HPI - General Adult General Chief complaint: Extremity Injury, Lower Stated complaint: right thigh to hip pain Time Seen by Provider: 11/04/23 18:38 Source: patient Mode of arrival: ambulatory Limitations: no limitations History of Present Illness ED Provider: matthias BALDERAS HPI narrative: 33-year-old female with a history of metastatic rectal cancer with known right hip avascular necrosis presents ED for right hip right thigh pain without any trauma. Patient denies any leg swelling, calf pain, pleurisy, chest pain, or shortness of breath. Patient denies any back pain, urinary/bowel incontinence, paralysis of extremities, weakness, fever, chills, or IV drug use. Related Data Previous Rx's ?Medication ?Instructions ?Recorded cyclobenzaprine 10 mg tablet 10 mg PO TID PRN pain #14 tabs 10/18/22 ibuprofen 400 mg tablet 400 mg PO Q6H PRN pain #20 tabs 10/18/22 oxycodone 5 mg tablet 5 mg PO Q8H PRN pain #15 tabs 10/18/22 polymyxin B sulfate 10,000 1 drp ophthalmic (eye) QID 7 days 11/22/22 unit-trimethoprim 1 mg/mL eye #10 mL drops (Polytrim) cyclobenzaprine 10 mg tablet 10 mg PO TID PRN muscle spasm #10 01/18/23 tabs gabapentin 100 mg capsule 100 mg PO BID #30 caps 01/18/23 hydromorphone 2 mg tablet 2 mg PO Q6H PRN severe pain (scale 01/18/23 (Dilaudid) score 7-10) #7 tabs morphine 15 mg immediate release 15 mg PO Q8H PRN pain #15 tabs 10/07/23 tablet ondansetron 4 mg disintegrating 4 mg PO Q6-8H PRN nausea and 10/07/23 tablet vomiting #10 tabs Allergies Allergy/AdvReac Type Severity Reaction Status Date / Time acetaminophen [From Percocet] AdvReac Vomiting Verified 11/04/23 18:09 oxycodone [From Percocet] AdvReac Vomiting Verified 11/04/23 18:09 Review of Systems 2 Review of Systems: Right hip pain Yes all other systems are reviewed and are negative PMFSH Social History Social History Alcohol intake: current Alcohol intake frequency: does not drink Substance Use Type: Marijuana Advance Directives: No Advance Directives Information Provided: No Do you have a plan to hurt others: No Plan Physical Exam ED Vital Signs: Vital Signs - 24 hr 11/04/23 18:08 11/04/23 20:41 Temperature 97.7 F Pulse Rate 110 H Respiratory Rate 18 16 Blood Pressure 151/103 H Pulse Oximetry 97 Oxygen Delivery Method Room Air BMI result Body Mass Index 31.0 Const Orientation/consciousness: oriented to person, oriented to place, oriented to time and patient oriented x3 HENMT Head: Yes normal to inspection, Yes No palpable skull fracture present, Yes normocephalic and Yes atraumatic Eyes General: appearance normal, both eyes and all related structures Neck Neck: Yes normal visual inspection, Yes full ROM, Yes no lymphadenopathy, Yes no meningeal signs, Yes trachea midline, Yes supple, No anterior neck swelling and No tender Chest Chest palpation & inspection: normal inspection of the chest and normal palpation of entire chest wall Resp Effort & Inspection: normal respiratory effort and able to speak in complete sentences Auscultation: clear to auscultation bilaterally Cardio Jugular venous distension: no JVD Heart sounds: S1 normal heart sound present and S2 normal heart sound present GI Inspection: Yes normal to inspection Palpation (GI): Soft to palpation, not firm, nontender, no guarding and not rigid General: No CVA tenderness and Yes no CVA tenderness Back/Spine/Pelvis Back: no CVA tenderness, No CVA tenderness and No back tenderness Skin General skin exam: no rashes or lesions noted, elasticity normal and turgor normal Neuro General: oriented to person, oriented to place, oriented to time, patient oriented x3, gait normal, tone normal, moves all extremities, Normal light touch and pain sensation, no meningeal signs, no focal motor deficits, CN's II-XI intact bilaterally and normal sensation to monofilament Extrem Other: Patient has known chronic limp right lower extremity. General: Yes normal to inspection and Yes full ROM Upper/lower leg/hip images: 2 1. Positive for tenderness on palpation. Negative for crepitus, ecchymosis, deformity, erythema, palpable mass, hotness, coldness, or red streaks. Femoral pulses intact. Rest of extremity motor/neuro/vascular exam intact Psych Appearance: grossly normal, well kempt and not disheveled Medications Administered Discontinued Medications Generic Name Dose Route Start Last Admin Trade Name Romero PRN Reason Stop Dose Admin Hydromorphone HCl 0.5 mg 11/04/23 20:30 11/04/23 20:41 Hydromorphone Hcl 0.5 Mg/0.5 Ml Syringe IM 11/04/23 20:31 0.5 mg ONCE ONE Administration Protocol Ketorolac Tromethamine 30 mg 11/04/23 19:06 11/04/23 19:15 Ketorolac Tromethamine 30 Mg/Ml Vial IM 11/04/23 19:07 30 mg ONCE ONE Administration Medical Decision Making Medical Decision Making MDM Narrative: [age] female with chronic right hip pain due to rectal cancer metastatic sacral carcinoma and also history of avascular necrosis right hip presents to ED for right hip right thigh pain without any trauma. Initial hip x-ray came back negative for any fracture avascular necrosis. Patient is sent for ultrasound 8:43pm: Patient's x-ray negative for avascular necrosis or fracture. Ultrasound negative for DVT. Physical exam does not indicate arterial occlusion, compartment syndrome, cellulitis, necrotizing fasciitis, osteomyelitis, abscess, or fracture. Patient given Dilaudid for pain. Patient informed to follow-up with primary care provider. Differential Diagnosis Differential Diagnoses: The differential diagnosis associated with the presentation includes (Fracture, DVT,) Independent Interpretation I performed an independent interpretation of an: Plain X-Ray and Ultrasound Radiology Impression Discussion of test interpretation with radiology: I have reviewed the radiologist's reading. Independent Historian Clinical information obtained from an independent historian. History obtained from or confirmed by: Other (Patient) External Record Review External record reviewed: Other (Prior history) Discharge Plan Discharge Clinical Impression: Hip pain Patient Disposition: Home, Self-Care Instructions: Hip Pain (ED), Warm Compress or Soak (ED) Additional Instructions: Your x-ray came back negative for fracture or avascular necrosis. Ultrasound came back negative for DVT. Recommend follow-up with primary care provider. Continue taking pain medication he has at home for pain relief. Return to the ED immediately for any worsening pain right hip, any back pain, worsening thigh pain, redness, bluish black discoloration, red streaks, calf pain, leg swelling, chest pain, shortness of breath, or any other concerning symptoms. FINDINGS: No fracture. Alignment is anatomic. Hip joint space is maintained. Soft tissues are unremarkable. IUD and surgical suture line in the pelvis. XR/XR hip RT w PEL1V IMPRESSION: Normal right hip. US/US venous duplex LE RT IMPRESSION: No DVT demonstrated in the right lower extremity. Prescriptions: No Action polymyxin B sulf-trimethoprim [Polytrim] 10,000 unit- 1 mg/mL drops 1 drp ophthalmic (eye) QID 7 Days Qty: 10 0RF Rx Instructions: while awake; do not exceed 6 doses in 24 hours cyclobenzaprine 10 mg tablet 10 mg PO TID PRN (Reason: pain) Qty: 14 0RF ibuprofen 400 mg tablet 400 mg PO Q6H PRN (Reason: pain) Qty: 20 0RF oxycodone 5 mg tablet 5 mg PO Q8H PRN (Reason: pain) Qty: 15 0RF Rx Instructions: Partial Fill upon patient request. gabapentin 100 mg capsule 100 mg PO BID Qty: 30 0RF hydromorphone [Dilaudid] 2 mg tablet 2 mg PO Q6H PRN (Reason: severe pain (scale score 7-10)) Qty: 7 0RF Rx Instructions: Partial Fill upon patient request. cyclobenzaprine 10 mg tablet 10 mg PO TID PRN (Reason: muscle spasm) Qty: 10 0RF morphine 15 mg tablet 15 mg PO Q8H PRN (Reason: pain) Qty: 15 0RF Rx Instructions: Partial Fill upon patient request. ondansetron 4 mg tablet,disintegrating 4 mg PO Q6-8H PRN (Reason: nausea and vomiting) Qty: 10 0RF Stand Alone Forms: Work/School Release Interventions: ED Discharge Assessment Last Done: 11/04/23 20:55 Discharge Date/Time: 11/04/23 20:55 Print Language: Trinidadian
[2023-11-04 20:41] VITALS: RESP 16
[2023-11-04] MEDS: HYDROmorphone HCl 0.5 MG/0.5 ML SYRINGE IM (20:41)
[2023-11-04 20:49] VITALS: BP 145/95; PULSE 87; RESP 18; TEMP 36.5; O2SAT 100
[2023-11-04 20:55] VITALS: BP 145/95; PULSE 87; RESP 18; TEMP 36.5; O2SAT 100
== END 2023-11-04 20:55 | disposition home or self-care (01) ==
PROVIDERS: Emergency Provider Internal Medicine; PCP Nurse Practitioner Family
DX: M25.551 Pain in right hip (principal); M79.651 Pain in right thigh; R26.89 Other abnormalities of gait and mobility; F12.90 Cannabis use, unspecified, uncomplicated; Z85.048 Personal history of other malignant neoplasm of rectum, rectosigmoid junction, and anus; Z79.899 Other long term (current) drug therapy
CPT/HCPCS: 73502; 93971; 96372; 99283; 99284; J1170; J1885

== ENCOUNTER 2023-11-29 23:23 | Emergency (ER) | payer OTHER, SELFPAY ==
--- NOTE | ~2023-11-29 | XR_ITS ---
EXAMINATION: XR PELVIS CLINICAL INFORMATION: Right hip pain. History of avascular arthritis. COMPARISON: November 04, [address] scan of October 06, 2023 TECHNIQUE: AP view of the pelvis. FINDINGS: AP film of the pelvis and AP view of the right hip performed. There is no evidence of acute fracture or diastases the pelvis. Hip joint spaces appear unremarkable. No significant sacroiliac joint abnormality is seen. IUD seen in place. Patient status post previous pelvic surgery with suture lines present. There is again noted to be a small amount of sclerosis about the right femoral head without evidence of femoral head collapse. XR/XR pelvis 1-2V IMPRESSION: No acute fracture or diastases of the pelvis. No acute fracture or dislocation of the right hip. Mild increased sclerosis about the right femoral head consistent with avascular necrosis.
[2023-11-29 23:28] VITALS: BP 149/95; PULSE 102; RESP 16; TEMP 36.3; O2SAT 96; BMI 27.1
[2023-11-29 23:56] VITALS: BP 136/85; PULSE 92; RESP 18; TEMP 36.8; O2SAT 100
--- NOTE | 2023-11-30 00:58 | ED.EXTPRO ---
HPI - Extremity Problem General Chief complaint: Extremity Problem Stated complaint: right leg pain/swelling Time Seen by Provider: 11/30/23 00:55 Source: patient Mode of arrival: ambulatory Limitations: no limitations History of Present Illness ED Provider: sybil DAVE Narrative: Patient with history of avascular necrosis of both hips with chronic pain got worse on the left side more than usual took ibuprofen without much relief pain is in the right lower extremity also feels slightly swollen Related Data Previous Rx's ?Medication ?Instructions ?Recorded cyclobenzaprine 10 mg tablet 10 mg PO TID PRN pain #14 tabs 10/18/22 ibuprofen 400 mg tablet 400 mg PO Q6H PRN pain #20 tabs 10/18/22 oxycodone 5 mg tablet 5 mg PO Q8H PRN pain #15 tabs 10/18/22 polymyxin B sulfate 10,000 1 drp ophthalmic (eye) QID 7 days 11/22/22 unit-trimethoprim 1 mg/mL eye #10 mL drops (Polytrim) cyclobenzaprine 10 mg tablet 10 mg PO TID PRN muscle spasm #10 01/18/23 tabs gabapentin 100 mg capsule 100 mg PO BID #30 caps 01/18/23 hydromorphone 2 mg tablet 2 mg PO Q6H PRN severe pain (scale 01/18/23 (Dilaudid) score 7-10) #7 tabs morphine 15 mg immediate release 15 mg PO Q8H PRN pain #15 tabs 10/07/23 tablet ondansetron 4 mg disintegrating 4 mg PO Q6-8H PRN nausea and 10/07/23 tablet vomiting #10 tabs Allergies Allergy/AdvReac Type Severity Reaction Status Date / Time acetaminophen [From Percocet] AdvReac Vomiting Verified 11/29/23 23:30 oxycodone [From Percocet] AdvReac Vomiting Verified 11/29/23 23:30 Review of Systems Review of Systems: Yes all other systems are reviewed and are negative PMFSH Social History Social History Alcohol intake: current Alcohol intake frequency: does not drink Substance Use Type: Marijuana Advance Directives: Yes Advance Directives Information Provided: Yes Advance Directives on File: No Do you have a plan to hurt others: No Plan Physical Exam Vital Signs: Vital Signs: Last Vital Signs Temp 98.2 F 11/30/23 04:00 Pulse 93 11/30/23 04:00 Resp 18 11/30/23 04:00 BP 130/92 H 11/30/23 04:00 Pulse Ox 99 11/30/23 04:00 O2 Del Method Room Air 11/30/23 04:00 BMI result Body Mass Index 27.1 Appearance: Alert. Oriented X3. No acute distress. CVS: Normal heart rate and rhythm. Pulses normal. Respiratory: No respiratory distress. Equal air entry bilateral, Abdomen: Soft and nontender. Skin: Skin warm and dry. Normal skin color. Normal skin turgor. Extremities: No lower extremity edema. No calf tenderness tenderness left inguinal area Neuro: Oriented X 3. Medical Decision Making Medical Decision Making MDM Narrative: Patient has chronic hip pain secondary to avascular necrosis x-ray negative for acute discharge patient home on pain management D-dimer also negative Differential Diagnosis Differential Diagnoses: The differential diagnosis associated with the presentation includes DVT/avascular necrosis Lab Data Labs: Lab Results 11/30/23 Range/Units 02:50 D-Dimer High Sensitivty < 150 NG/ML Discharge Plan Discharge Clinical Impression: Musculoligamentous strain Patient Disposition: Home, Self-Care Instructions: Musculoskeletal Pain (ED) Additional Instructions: take your pain meds as adv Prescriptions: No Action polymyxin B sulf-trimethoprim [Polytrim] 10,000 unit- 1 mg/mL drops 1 drp ophthalmic (eye) QID 7 Days Qty: 10 0RF Rx Instructions: while awake; do not exceed 6 doses in 24 hours cyclobenzaprine 10 mg tablet 10 mg PO TID PRN (Reason: pain) Qty: 14 0RF ibuprofen 400 mg tablet 400 mg PO Q6H PRN (Reason: pain) Qty: 20 0RF oxycodone 5 mg tablet 5 mg PO Q8H PRN (Reason: pain) Qty: 15 0RF Rx Instructions: Partial Fill upon patient request. gabapentin 100 mg capsule 100 mg PO BID Qty: 30 0RF hydromorphone [Dilaudid] 2 mg tablet 2 mg PO Q6H PRN (Reason: severe pain (scale score 7-10)) Qty: 7 0RF Rx Instructions: Partial Fill upon patient request. cyclobenzaprine 10 mg tablet 10 mg PO TID PRN (Reason: muscle spasm) Qty: 10 0RF morphine 15 mg tablet 15 mg PO Q8H PRN (Reason: pain) Qty: 15 0RF Rx Instructions: Partial Fill upon patient request. ondansetron 4 mg tablet,disintegrating 4 mg PO Q6-8H PRN (Reason: nausea and vomiting) Qty: 10 0RF Interventions: ED Discharge Assessment Last Done: 11/30/23 04:00 Discharge Date/Time: 11/30/23 04:01 Print Language: Bulgarian
[2023-11-30 03:09] LABS: D Dimer High Sensitivity < 150 NG/ML
[2023-11-30 04:00] VITALS: BP 130/92; PULSE 93; RESP 18; TEMP 36.8; O2SAT 99
== END 2023-11-30 04:01 | disposition home or self-care (01) ==
PROVIDERS: Emergency Provider Internal Medicine
DX: M25.552 Pain in left hip (principal); M79.18 Myalgia, other site
CPT/HCPCS: 36415; 72170; 85379; 99283; 99284

== ENCOUNTER 2024-01-30 21:29 | Emergency (ER) | payer OTHER, SELFPAY ==
--- NOTE | ~2024-01-30 | US_ITS ---
EXAMINATION: US TRIPLEX LOWER EXTREMITY, RIGHT CLINICAL INFORMATION: Calf pain and swelling. COMPARISON: November 04, 2023. TECHNIQUE: Color-flow triplex imaging with spectral analysis and compression Doppler were performed on the right lower extremity. FINDINGS: Respiratory variation, normal compression and augmented flow are noted throughout the right lower extremity. The visualized common femoral vein, superficial femoral vein, profunda femoral vein, popliteal vein and midcalf peroneal and posterior tibial venous segments show no evidence of deep venous thrombosis. There is no Simental's cyst. US/US venous duplex LE RT IMPRESSION: No evidence of deep venous thrombosis involving the right lower extremity. Electronically signed by: Crispin Dent MD 01/31/2024 12:00 AM EDT
[2024-01-30 21:50] VITALS: BP 144/96; PULSE 97; RESP 16; TEMP 36.5; O2SAT 100; BMI 28.9
--- NOTE | 2024-01-30 22:15 | PC.NURSE ---
Lab orders written on paper due to system downtime. Labs being obtained at this time.
[2024-01-30 22:43] LABS: Appearance Urine Clear; Color Urine Yellow; Glucose Urine UA Negative (Negative); Leukocyte Esterase Urine Negative (Negative); Nitrite Urine Negative (Negative); PH 5.5 (5.0-9.0); Specific Gravity - Urine 1.015 (1.005-1.025); Urine Blood Negative (Negative); Urine Ketones Negative (Negative); Urine Protein Negative (Neg-Trace)
--- NOTE | 2024-01-30 23:00 | ED_ITS ---
HPI - Extremity Problem General Chief complaint: Extremity Problem Stated complaint: right leg swelling w/pain Time Seen by Provider: 01/30/24 22:45 Source: patient Mode of arrival: ambulatory Limitations: no limitations History of Present Illness HPI Narrative: Patient is a 33-year-old female with past medical history of metastatic rectal cancer to right sacral bone, right hip avascular necrosis presenting for evaluation of pain and swelling to the right calf. She reports that this afternoon she noticed a throbbing discomfort in the calf. As the evening progressed on examination she noticed that her right calf and foot was significantly swollen when compared to the left and was having increased pain. She states that she has recently been ambulating more with her cane, was not certain whether she had perhaps strain muscle but the pain increased in with a swelling present she was concerned for a possible blood clot. She reports that she had a cryoablation approximately 1 month ago at [facility], has been experiencing chronic intermittent numbness to the right foot secondary to this. Related Data Previous Rx's ?Medication ?Instructions ?Recorded cyclobenzaprine 10 mg tablet 10 mg PO TID PRN pain #14 tabs 10/18/22 ibuprofen 400 mg tablet 400 mg PO Q6H PRN pain #20 tabs 10/18/22 oxycodone 5 mg tablet 5 mg PO Q8H PRN pain #15 tabs 10/18/22 polymyxin B sulfate 10,000 1 drp ophthalmic (eye) QID 7 days 11/22/22 unit-trimethoprim 1 mg/mL eye #10 mL drops (Polytrim) cyclobenzaprine 10 mg tablet 10 mg PO TID PRN muscle spasm #10 01/18/23 tabs gabapentin 100 mg capsule 100 mg PO BID #30 caps 01/18/23 hydromorphone 2 mg tablet 2 mg PO Q6H PRN severe pain (scale 01/18/23 (Dilaudid) score 7-10) #7 tabs morphine 15 mg immediate release 15 mg PO Q8H PRN pain #15 tabs 10/07/23 tablet ondansetron 4 mg disintegrating 4 mg PO Q6-8H PRN nausea and 10/07/23 tablet vomiting #10 tabs Allergies Allergy/AdvReac Type Severity Reaction Status Date / Time acetaminophen [From Percocet] AdvReac Vomiting Verified 01/30/24 21:52 oxycodone [From Percocet] AdvReac Vomiting Verified 01/30/24 21:52 Review of Systems 2 Review of Systems: Yes all other systems are reviewed and are negative [facility] Past Medical History Attestation statement: The following information was validated with the patient. Source: old records reviewed Social History Social History Alcohol intake: current Alcohol intake frequency: does not drink Substance Use Type: Marijuana Advance Directives: No Advance Directives Information Provided: No Physical Exam 2 Vital Signs: Vital Signs: Last Vital Signs Temp 97.7 F 01/30/24 21:50 Pulse 97 01/30/24 21:50 Resp 16 01/30/24 21:50 BP 144/96 H 01/30/24 21:50 Pulse Ox 100 01/30/24 21:50 O2 Del Method Room Air 01/30/24 21:50 BMI result Body Mass Index 28.9 Appearance: Alert.?Oriented to person, place and time. No acute distress.?Normal affect. Neck: Normal inspection.? Neck supple.?? CVS: Heart sounds normal. Normal heart rate and rhythm.? Pulses normal.?? Respiratory: No respiratory distress.? Lung sounds clear to auscultation bilaterally?? Abdomen: Soft and non-tender. Normoactive bowel sounds. Skin: Skin warm and dry.? Normal skin color.? Extremities: Bilateral lower extremity edema, 1+ on the left, 2+ on the right with asymmetrical calf size. Right calf tenderness upon palpation. No erythema or warmth. 2+ DP/PT pulse bilaterally.? Neuro: Moves all extremities spontaneously. Sensation intact bilaterally. No focal neuro deficits. Ambulates with antalgic gait. Medical Decision Making Medical Decision Making MDM Narrative: Patient is a 33-year-old female with past medical history of metastatic rectal cancer to right sacral bone, right hip avascular necrosis presenting for evaluation of pain and swelling to the right calf. Serum labs were obtained CBC is without leukocytosis, mild normocytic anemia that does not meet transfusion criteria, no thrombocytopenia. No electrolyte derangement, no LIUDMILA. Venous duplex ultrasound was obtained to exclude DVT given her past medical history which is without evidence of DVT. Discussed these findings with patient, recommend close outpatient follow-up with your primary care doctor and oncologist, reviewed worrisome signs and symptoms that would warrant re- evaluation in the emergency department. All questions answered. Stable for discharge Differential Diagnosis Differential Diagnoses: The differential diagnosis associated with the presentation includes (DVT, electrolyte derangement, muscular strain. Not consistent with arterial occlusion.) Admission/Observation Consideration of admission/observation: Escalation of care including admission/observation considered Lab Data MDM Lab Attestation statement: I reviewed the patient's lab results. (See narrative above) 01/30/24 22:55 01/30/24 22:55 Labs: Lab Results 01/30/24 01/30/24 Range/Units 22:20 22:55 WBC 6.6 (4.8-10.8) X10*3/uL RBC 3.61 L (4.20-5.50) X10*6/uL Hgb 11.8 L (12.0-16.0) g/dl Hct 34.3 L (37.0-47.0) % MCV 95.0 (80.0-98.0) fL MCH 32.7 (27.0-33.0) pg MCHC 34.4 (31.0-35.0) g/dl RDW 11.8 (11.0-16.0) % Plt Count 256 (160-400) X10*3/uL MPV 10.3 (9.4-12.3) fL Immature Gran % (Auto) 0.2 (0.0-0.4) % Neut % (Auto) 56.0 (45-73) % Lymph % (Auto) 27.9 (20-40) % [place] % (Auto) 10.6 (2-11) % Eos % (Auto) 4.8 H (0-4) % Baso % (Auto) 0.5 (0-2) % Lymph # (Auto) 1.8 (1.2-4.9) X10*3/uL [place] # (Auto) 0.7 (0.1-1.2) X10*3/uL Eos # (Auto) 0.3 (0.0-0.4) X10*3/uL Baso # (Auto) 0.0 (0.0-0.2) X10*3/uL Abs Immat Gran (auto) 0.01 (0.00-0.03) X10*3/uL Absolute Neuts (auto) 3.7 (2.0-8.3) x10*3/uL Absolute Nucleated RBC 0.000 (0.0-0.012) X10*3/uL Nucleated RBC % (auto) 0.0 (0.0-0.2) /100WBC PT 11.4 (11.1-13.3) SEC INR 0.9 (0.9-1.1) D-Dimer High Sensitivty < 150 NG/ML Sodium 139 (135-145) mmol/L Potassium 3.7 (3.3-5.1) mmol/L Chloride 104 (96-108) mmol/L Carbon Dioxide 28 (22-29) mmol/L Anion Gap 11 L (12-20) BUN 14 (9-16) mg/dL Creatinine 0.69 (0.5-1.4) mg/dL Estim Creat Clear Calc 132.0 Estimated GFR > 60 Random Glucose 91 (60-115) mg/dL Calcium 9.7 (8.4-10.2) mg/dL Urine Color Yellow Urine Appearance Clear Urine pH 5.5 (5.0-9.0) Ur Specific [place] 1.015 (1.005-1.025) Urine Protein Negative (Neg-Trace) mg/dL Urine Glucose (UA) Negative (Negative) mg/dL Urine Ketones Negative (Negative) mg/dL Urine Blood Negative (Negative) Urine Nitrite Negative (Negative) Ur Leukocyte Esterase Negative (Negative) Urine Test NEGATIVE (NEGATIVE) Independent Interpretation I performed an independent interpretation of an: Ultrasound Radiology Impression Discussion of test interpretation with radiology: I have reviewed the radiologist's reading. Radiologist Impression: US/US venous duplex LE RT IMPRESSION: No evidence of deep venous thrombosis involving the right lower extremity. External Record Review External record reviewed: Outpatient record Prescription Management I considered prescription management with: Pain Medication Discharge Plan Discharge Clinical Impression: Muscle strain of right lower extremity Patient Disposition: Home, Self-Care Instructions: Muscle Strain (ED), Musculoskeletal Pain (ED) Additional Instructions: Ultrasound is negative for DVT. Serum labs overall unremarkable, mild anemia. Urinalysis without evidence of infection. Take your medications as prescribed. Follow-up with your primary care doctor/oncologist. Return to emergency department any new or worsening symptoms or concerns. Prescriptions: No Action polymyxin B sulf-trimethoprim [Polytrim] 10,000 unit- 1 mg/mL drops 1 drp ophthalmic (eye) QID 7 Days Qty: 10 0RF Rx Instructions: while awake; do not exceed 6 doses in 24 hours cyclobenzaprine 10 mg tablet 10 mg PO TID PRN (Reason: pain) Qty: 14 0RF ibuprofen 400 mg tablet 400 mg PO Q6H PRN (Reason: pain) Qty: 20 0RF oxycodone 5 mg tablet 5 mg PO Q8H PRN (Reason: pain) Qty: 15 0RF Rx Instructions: Partial Fill upon patient request. gabapentin 100 mg capsule 100 mg PO BID Qty: 30 0RF hydromorphone [Dilaudid] 2 mg tablet 2 mg PO Q6H PRN (Reason: severe pain (scale score 7-10)) Qty: 7 0RF Rx Instructions: Partial Fill upon patient request. cyclobenzaprine 10 mg tablet 10 mg PO TID PRN (Reason: muscle spasm) Qty: 10 0RF morphine 15 mg tablet 15 mg PO Q8H PRN (Reason: pain) Qty: 15 0RF Rx Instructions: Partial Fill upon patient request. ondansetron 4 mg tablet,disintegrating 4 mg PO Q6-8H PRN (Reason: nausea and vomiting) Qty: 10 0RF Referrals: Yasmeen Rivera NP [Primary Care Provider] - Print Language: Polish
--- NOTE | 2024-01-30 23:03 | PC.NURSE ---
power port accessed, labs obtained
[2024-01-30 23:05] LABS: MANUAL DIFF FLAG NO
[2024-01-30 23:10] LABS: Basophils Percent Auto 0.5 % (0-2); Eosinophils Absolute Auto 0.3 X10*3/uL (0.0-0.4); Eosinophils Percent Auto 4.8 % (0-4); Hematocrit 34.3 % (37.0-47.0); Hemoglobin 11.8 g/dl (12.0-16.0); Imm Gran Abs Auto 0.01 X10*3/uL (0.00-0.03); Imm Gran Pct Auto 0.2 % (0.0-0.4); Lymphocytes Absolute Auto 1.8 X10*3/uL (1.2-4.9); Lymphocytes Percent Auto 27.9 % (20-40); Mean Corpuscular HGB Conc 34.4 g/dl (31.0-35.0); Mean Corpuscular Hemoglobin 32.7 pg (27.0-33.0); Mean Platelet Volume 10.3 fL (9.4-12.3); Monocytes Absolute Auto 0.7 X10*3/uL (0.1-1.2); Monocytes Percent Auto 10.6 % (2-11); Neutrophils Absolute Auto 3.7 x10*3/uL (2.0-8.3); Platelet Count 256 X10*3/uL (160-400); Red Blood Count 3.61 X10*6/uL (4.20-5.50); Red Cell Distribution Width 11.8 % (11.0-16.0); White Blood Count 6.6 X10*3/uL (4.8-10.8)
[2024-01-30 23:16] LABS: UPreg QC Valid YES; Urine Pregnancy NEGATIVE (NEGATIVE)
[2024-01-30 23:27] LABS: INTERNATIONAL NORM RATIO 0.9 (0.9-1.1); Prothrombin Time 11.4 SEC (11.1-13.3)
[2024-01-30 23:29] LABS: D Dimer High Sensitivity < 150 NG/ML
[2024-01-30 23:36] LABS: Anion Gap 11 (12-20); Blood Urea Nitrogen 14 mg/dL (9-16); Calcium 9.7 mg/dL (8.4-10.2); Carbon Dioxide 28 mmol/L (22-29); Chloride 104 mmol/L (96-108); Estimated Glomerular Filt Rate > 60; Glucose Random 91 mg/dL (60-115); Potassium 3.7 mmol/L (3.3-5.1); Sodium 139 mmol/L (135-145)
[2024-01-31 01:09] VITALS: BP 124/64; PULSE 104; RESP 16; TEMP 36.5; O2SAT 100
[2024-01-31 01:10] VITALS: BP 124/64; PULSE 104; RESP 16; TEMP 36.5; O2SAT 100
== END 2024-01-31 01:12 | disposition home or self-care (01) ==
PROVIDERS: Emergency Provider Emergency Medicine; PCP Nurse Practitioner Family
DX: S86.911A Strain of unspecified muscle(s) and tendon(s) at lower leg level, right leg, initial encounter (principal); R60.0 Localized edema; X58.XXXA Exposure to other specified factors, initial encounter; Y93.89 Activity, other specified; Y92.89 Other specified places as the place of occurrence of the external cause; Y99.8 Other external cause status; Z79.899 Other long term (current) drug therapy
CPT/HCPCS: 36415; 80048; 81003; 81025; 85025; 85379; 85610; 93971; 99283; 99284